=== PATIENT | male | born 2000 | race Hispanic/Latino ===

== ENCOUNTER 2023-10-09 14:24 | Emergency (ER) | payer OTHER, SELFPAY ==
[2023-10-09 14:28] VITALS: BP 119/71; PULSE 68; RESP 16; TEMP 36.6; O2SAT 98; BMI 23.3
--- NOTE | 2023-10-09 15:11 | ED_ITS ---
HPI - Head Injury <Austyn Gerber MD - Last Filed: 10/27/23 06:51> General Chief complaint: Head Injury Stated complaint: hit head on electric box not wearing any PPE Time Seen by Provider: 10/09/23 14:36 Source: patient Mode of arrival: Ambulatory History of Present Illness HPI Narrative: Patient here for forehead injury at the end of the shift at work today. Patient was walking down the hallway, there was a low-lying circuit box at he bumped into with his forehead. He was looking down. No loss of consciousness. Is not on any blood thinners. There was brief visual disturbance and dizziness which has resolved. No prior history of head injury. No numbness tingling or weakness. No nausea or vomiting. Related Data Allergies Allergy/AdvReac Type Severity Reaction Status Date / Time No Known Drug Allergies Allergy Verified 10/09/23 14:28 Review of Systems <Austyn Gerber MD - Last Filed: 10/27/23 06:51> Review of Systems Narrative: GENERAL: negative chills, fatigue, malaise, fever, sweats. HEENT: negative sinus pain, ear pain, sore throat, positive vision changes RESPIRATORY: negative dyspnea, cough CARDIOVASCULAR: negative chest pain, palpitations GASTROINTESTINAL: negative nausea, vomiting, abdominal pain : negative dysuria, frequency, hematuria MUSCULOSKELETAL: negative muscle or bony pain SKIN: negative rash, skin lesions NEUROLOGIC: negative weakness, numbness, positive dizzy Patient History <Austyn Gerber MD - Last Filed: 10/27/23 06:51> tobacco type: smokeless tobacco alcohol intake frequency: holidays/special occasions only Substance Use Type: does not use Exam <Austyn Gerber MD - Last Filed: 10/27/23 06:51> Narrative Exam Narrative: GENERAL: in no distress, not toxic not dyspneic HEAD: Normocephalic. Mild tenderness to mid forehead but there is no overlying bruise or skin injury/abrasion laceration, no crepitus or step-off of the forehead. There is no erythema edema or bruising of the forehead EYES: Pupils equal round, PERRLA ENT: Mucous membranes moist. NECK: Trachea midline. No midline tenderness step-off of the cervical spine CARDIOVASCULAR: Regular rate and rhythm RESPIRATORY: Clear to auscultation. Breath sounds equal bilaterally. No wheezes, rales, or rhonchi. GASTROINTESTINAL: Abdomen soft, non-tender EXTREMITIES: No gross deformities. BACK: No flank tenderness. NEURO: AOx4. Clear speech no facial droop steady self ?gait no foot drop. ?Light touch intact to bilateral face hands. ?Strong equal financial adviser bilaterally and ankle flexion hip flexion and knee flexion. ?Strong bilateral patellar reflexes. ?Steady Romberg, negative pronator drift SKIN: Warm and dry PSYCH: Not anxious, is cooperative Initial Vital Signs Initial Vital Signs: Vital Signs Temperature 98 F 10/09/23 14:28 Pulse Rate 68 10/09/23 14:28 Respiratory Rate 16 10/09/23 14:28 Blood Pressure 119/71 10/09/23 14:28 Pulse Oximetry 98 10/09/23 14:28 Oxygen Delivery Method Room Air 10/09/23 14:28 <Yomi Swenson DO - Last Filed: 10/09/23 16:01> Initial Vital Signs Initial Vital Signs: Vital Signs Temperature 98 F 10/09/23 14:28 Pulse Rate 68 10/09/23 14:28 Respiratory Rate 16 10/09/23 14:28 Blood Pressure 119/71 10/09/23 14:28 Pulse Oximetry 98 10/09/23 14:28 Oxygen Delivery Method Room Air 10/09/23 14:28 Course <Austyn Gerber MD - Last Filed: 10/27/23 06:51> Orders Ordered: ED Orders 10/09/23 15:11 CT head/brain wo con Stat Vital Signs Vital signs: Vital Signs - 8 hr 10/09/23 14:28 Temperature 98 F Pulse Rate 68 Respiratory Rate 16 Blood Pressure 119/71 Pulse Oximetry 98 Oxygen Delivery Method Room Air <Yomi Swenson DO - Last Filed: 10/09/23 16:01> Orders Ordered: ED Orders 10/09/23 15:11 CT head/brain wo con Stat Vital Signs Vital signs: Vital Signs - 8 hr 10/09/23 14:28 Temperature 98 F Pulse Rate 68 Respiratory Rate 16 Blood Pressure 119/71 Pulse Oximetry 98 Oxygen Delivery Method Room Air MDM - Head Injury <Austyn Gerber MD - Last Filed: 10/27/23 06:51> MDM Narrative Medical decision making narrative: Patient here for forehead injury at the end of the shift at work today. Patient was walking down the hallway, there was a low-lying circuit box at he bumped into with his forehead. He was looking down. No loss of consciousness. Is not on any blood thinners. There was brief visual disturbance and dizziness which has resolved. No prior history of head injury. No numbness tingling or weakness. No nausea or vomiting. After history and exam CT head, no blood work indicated. Vital signs and exam is reassuring. CT head ordered for trauma/dizziness/visual changes. No pain at this time. No medications are indicated at this time. [facility] Medical records reviewed: No recent visit for this complaint Differential considered: Includes but not limited to skull fracture concussion intracranial bleed forehead contusion Imaging studies independently reviewed: CT head Consultations: None indicated Treatments: None indicated Re-evaluations: Discussion: Appropriate for discharge home exam and imaging studies are reassuring. Patient neurologically intact at this time of visit. Symptoms have resolved by arrival time to the ER. Patient states does not need a work note Diagnosis: Forehead contusion 3:30 p.m.. Brennick: Sign out to Dr Swenson, CT head results are pending. Exam is reassuring. Patient needs update on results <Yomi Swenson, DO - Last Filed: 10/09/23 16:01> Imaging Data CT scan - head: Radiologist's Impression: PROCEDURE: CT HEAD/BRAIN WO CON INDICATIONS: Trauma/forehead injury TECHNIQUE: Noncontrast 4.5 mm thick angled axial sections acquired from the foramen magnum to the vertex, with coronal and sagittal reformats. For radiation dose reduction, the following was used: automated exposure control, adjustment of mA and/or kV according to patient size. COMPARISON: None. FINDINGS: Image quality: Diagnostic. CSF spaces: Basal cisterns are patent. No extra-axial fluid collections. Ventricles are normal in size and shape. Brain: No midline shift. No intracranial masses or hemorrhage. Melgar-white matter interface is normal. Skull and face: Calvarium and visualized facial bones are intact, without suspicious lesions. Sinuses: Visualized sinuses and mastoids are clear. IMPRESSION: No acute intracranial pathology. [facility] Narrative Medical decision making narrative: Patient here for forehead injury at the end of the shift at work today. Patient was walking down the hallway, there was a low-lying circuit box at he bumped into with his forehead. He was looking down. No loss of consciousness. Is not on any blood thinners. There was brief visual disturbance and dizziness which has resolved. No prior history of head injury. No numbness tingling or weakness. No nausea or vomiting. After history and exam CT head, no blood work indicated. Vital signs and exam is reassuring. CT head ordered for trauma/dizziness/visual changes. No pain at this time. No medications are indicated at this time. [facility] Medical records reviewed: No recent visit for this complaint Differential considered: Includes but not limited to skull fracture concussion intracranial bleed forehead contusion Imaging studies independently reviewed: CT head Consultations: None indicated Treatments: None indicated Re-evaluations: Discussion: Appropriate for discharge home exam and imaging studies are reassuring. Patient neurologically intact at this time of visit. Symptoms have resolved by arrival time to the ER. Patient states does not need a work note Diagnosis: Forehead contusion 3:30 p.m.. Carriennick: Sign out to Dr Swenson, CT head results are pending. Exam is reassuring. Patient needs update on results Dr swenson: Received turned over. Review patient's history and physical exam and workup to this point. Head CT is unremarkable. No further workup required out of the emergency department. Discharge Plan Departure Patient Disposition: Home Clinical Impression: Contusion of forehead Qualifiers: Encounter type: initial encounter Qualified Code(s): S00.83XA - Contusion of other part of head, initial encounter Instructions: DI for Concussion, DI for Closed Head Injury Activity Restrictions/Additional Instructions: Your exam and CT head results are reassuring. You may return to work without any restrictions. May continue Tylenol or ibuprofen for any discomfort or pain. See your family doctor in a week for re-evaluation. Return if worse if any questions or concerns Referrals: ProviderCheryl [Primary Care Provider] - Stand Alone Forms: Patient Portal/API
[2023-10-09 16:11] VITALS: BP 116/69; PULSE 58; RESP 18; O2SAT 99
== END 2023-10-09 16:11 | disposition home or self-care (01) ==
PROVIDERS: Emergency Provider Emergency Medicine
DX: S00.83XA Contusion of other part of head, initial encounter (principal); W22.8XXA Striking against or struck by other objects, initial encounter
CPT/HCPCS: 70450; 99281; 99284